=== PATIENT | male | born 2005 | race Caucasian/White ===

== ENCOUNTER 2024-08-18 21:05 | Emergency (ER) | payer OTHER ==
[~2024-08-18] VITALS: Ht 170.2 cm; Wt 72.0 kg
[2024-08-18 21:07] VITALS: PULSE 90; RESP 20; O2SAT 98
== END 2024-08-18 23:45 ==
LOC: ER 21:05
DX: S43.402A Unspecified sprain of left shoulder joint, initial encounter (principal); S09.90XA Unspecified injury of head, initial encounter; X58.XXXA Exposure to other specified factors, initial encounter; Y93.89 Activity, other specified; Y92.89 Other specified places as the place of occurrence of the external cause; Y99.8 Other external cause status
CPT/HCPCS: 73030; 99283